=== PATIENT | female | born 1955 | race Caucasian/White ===

== ENCOUNTER → 2023-12-15 12:32 | Outpatient (REF) | payer MEDICARE, OTHER, SELFPAY | LOC: HWRAD 12:32 | PROVIDERS: ATTENDING PHYSICIAN Internal Medicine | DX: R10.32 Left lower quadrant pain (principal) | CPT/HCPCS: 74177; Q9967 ==

== ENCOUNTER 2024-06-13 22:49 | Emergency (ER) | payer MEDICARE, OTHER, SELFPAY ==
[2024-06-13 22:58] VITALS: BP 158/87
--- NOTE | 2024-06-14 02:02 | ED.GENMED ---
History of Present Illness
General
Chief Complaint: Skin Problem
Source: patient, family (Son) and medical concierge (Son)
Exam Limitations: none
Time Seen by Provider: 06/14/24 01:39
History of Present Illness
History of Present Illness:
This is a 69 year old female that comes in with c/o rash on her face. Son states that this started a month ago with some redness on her face. States that she felt like it was burning and itching. Then last week she went to the [facility] and they
did a biopsy. States that she was given 2 creams and this made her face worse. Yesterday she was given different creams and an antibiotic. Patient has take 4 doses of the antibiotic but put the cream a little on her nose and said it burned so did
not use it. States that she took Benadryl 25mg BID today. States that she has a headache and dizziness as patient has Vertigo. States that she also has chills. Denies any fever, chest pain, SOB, abd pain, nausea, vomiting, diarrhea, urinary
burning.
Past History
Past History
ED Past Medical History: GERD, Hypercholesterolemia, Psychiatric (Anxiety, ) and Other (H-pylori, Anemia, Vertigo)
ED Past Surgical History: Orthopedic (left knee tumor removed) and Tonsilectomy (Vertigo )
Social History
Tobacco: Non-smoker
Alcohol: None
Drug: None
Personal:
Living: with family
Employment: Not employed
Review of Systems
Review of Systems
All Other Systems: ROS reviewed and negative except as documented in HPI and ROS
Constitutional: Reports chills; Denies fever
EENT: Reports no symptoms
Respiratory: Reports no symptoms; Denies cough or trouble breathing
Cardiac: Reports no symptoms; Denies chest pain
ABD/GI: Reports no symptoms; Denies abdominal pain, nausea, vomiting or diarrhea
: Reports no symptoms; Denies dysuria, frequency or urgency
Musculoskeletal: Reports no symptoms
Skin: Reports no symptoms
Neurological: Reports dizzy and headache
Psychiatric: Reports no symptoms
Phy Exam
General Physical Exam
General Presentation: no apparent distress
General age: appears stated age
General Skin: warm and dry
General Habitus: elderly
General Mental: alert
General Hydration: appears well hydrated
ENT Exam
ENT Exam: TM's normal, pharynx normal and neck supple
Eye Exam
Eye Exam: EOMI
Cardiovascular Exam
Cardiovascular Exam: regular rate/rhythm, no edema, no murmur and normal peripheral pulses
Pulmonary Exam
Pulmonary Exam: lungs clear, no respiratory distress, no rales, chest non tender, no crackles, no rhonchi, no wheezing and no cough
Gastrointestinal Exam
Gastrointestinal Exam: normal bowel sounds, non tender, soft, no organomegaly, no pulsatile mass and non distended
Musculoskeletal Exam
Musculoskeletal Exam: full ROM and no edema
Skin Exam
Skin Exam: warm/dry, no petechia and redness (Red rash noted over face and a few spots on the upper chest. Rash similar to Rosacea)
Psychiatric Exam
Psychiatric Exam: normal mood/affect
Course
Orders/Labs/Results
Orders:
Orders
06/14/24 02:01
Acetaminophen [Tylenol] 1,000 mg PO NOW STA
Diphenhydramine [Benadryl] 50 mg IV NOW STA
Ketorolac [Toradol] 30 mg IV NOW STA
06/14/24 02:08
Famotidine [Pepcid] 20 mg IV NOW STA
06/14/24 03:18
Meclizine [Antivert] 50 mg PO NOW STA
Vital Signs
Initial and Last Documented VS:
Initial Vital Signs
Temp Pulse Resp BP Pulse Ox
97.8 F 69 18 158/87 97
06/13/24 22:58 06/13/24 22:58 06/13/24 22:58 06/13/24 22:58 06/13/24 22:58
Last Documented Vital Signs
Temp Pulse Resp BP Pulse Ox
97.8 F 86 17 127/66 97
06/13/24 22:58 06/14/24 02:15 06/14/24 02:15 06/14/24 02:15 06/14/24 02:15
MDM/Problems Addressed
Differential Diagnosis Includes:
facial rash, Rosacia, Contact dermatitis
MDM/Problems Addressed:
This is a 69 year old female that comes in with c/o rash over her face. Son states that this started a month ago with slight redness. States that it has continued to get worse and she has seen the [facility] twice. Patient was given Antibiotic
yesterday and changed her facial cream. Patient has a return appointment next week.
Will medicate for pain, Pepcid to decrease the histamine release and Benadryl to help with the itching.
Back into see patient. Patient states that she feels a little better but her vertigo is bothering her. Son states that she ran out of her Antivert. Will give patient a dose here and a prescription. Patient to continue with the Benadryl and Pepcid.
Encouraged her to try and use the Cream that was ordered and follow back up with the [facility]. Return with any other concerns.
Chronic conditions affecting care:
NA
Acute Exacerbation and/or Progression of Chronic Illness:
NA
*Pulse Oximetry
Patient hypoxic: no
*EKG
Interpreted by ED Provider?: NA
Rate: EKG- N/A
*Psychiatric Assistant Interpretation
Rate: Psychiatric Assistant- N/A
*Critical Care Note
Total Time (30-74mins, 75-104mins- exclusive of procedures): Not Applicable
ED Attending Note
-
Portions of this chart may have been created with voice recognition software.� Occasional wrong word or��sound alike� substitutions may have occurred due to the inherent limitations of voice recognition software.
Discharge Plan
Departure
Patient Disposition: Home (Routine Discharge)
Date of Disposition: 06/14/24
Time of Disposition: 03:19
Patient with high blood pressure during this ER visit?: Yes
Condition: Good
Covid-19: Not Applicable
Discharge Problem:
Facial rash
Instructions: Skin Rash (DC), BLOOD PRESSURE
Prescriptions:
New
meclizine [Antivert] 50 mg tablet
50 mg PO BID PRN (Reason: dizziness) Qty: 10 0RF
No Action
Multivitamin
1 tab PO DAILY
pravastatin 10 MG tablet
10 mg PO DAILY
escitalopram oxalate [Lexapro] 5 MG tablet
5 mg PO DAILY
Protonix
40 mg PO DAILY
Vitamin D2
50,000 units PO .2XWEEK
ondansetron 4 MG tablet,disintegrating
4 mg PO TIDPRN PRN (Reason: nausea/vomiting) Qty: 10 0RF
Activity Restrictions/Additional Instructions:
As discussed, please continue with the antibiotic you were given. Please try the cream as it may sting a little when it is first put on but then it may stop. Please use Pepcid 20mg which is over the counter and this will help decrease the
histamine release. Follow up with the [facility] for further evaluation. You have also been given a prescription for Antivert to help with your Vertigo. Please increase your water intake to 8-8oz glasses daily. IF YOU HAVE ANY OTHER CONCERNS
PLEASE RETURN TO THE EMERGENCY ROOM.
Interventions
Interventions:
*Risk Screen - Suicide Last Done: 06/13/24 22:58
*General Assessment Last Done: 06/14/24 02:15
*Neglect/Abuse Screening Last Done: 06/14/24 02:15
ED- Fall Risk Assessment Last Done: 06/14/24 02:15
*ED COVID-19 Vaccine History Last Done: 06/14/24 02:15
ED-Skin Assessment Last Done: 06/14/24 02:15
Discharge Date and Time
Print Language: SPANISH
[2024-06-14 02:15] VITALS: BP 127/66
[2024-06-14] MEDS: TYLENOL 1000 MG PO (02:17)
[2024-06-14] MEDS: BENADRYL 50 MG IV (02:22)
[2024-06-14] MEDS: TORADOL 30 MG IV (02:23)
[2024-06-14] MEDS: PEPCID 20 MG IV (02:23)
[2024-06-14 03:05] VITALS: BP 161/76
[2024-06-14] MEDS: ANTIVERT 25 MG PO (03:38)
[2024-06-14] MEDS: ZOFRAN 4 MG IV (03:42)
== END 2024-06-14 03:45 | disposition home or self-care (01) ==
LOC: EMR 22:49
PROVIDERS: EMERGENCY PHYSICIAN Emergency Medicine; FAMILY PHYSICIAN Internal Medicine
DX: R21 Rash and other nonspecific skin eruption (principal); R42 Dizziness and giddiness; R03.0 Elevated blood-pressure reading, without diagnosis of hypertension
CPT/HCPCS: 99284; 96374; 96375 ×3

== ENCOUNTER 2025-02-20 07:47 | Emergency (ER) | payer MEDICARE, OTHER, SELFPAY ==
[2025-02-20 07:50] VITALS: BP 153/77
[2025-02-20 08:40] LABS: Hematocrit 41.2 % (37.0-47.0); Hemoglobin 13.4 g/dL (12.0-16.0); Mean Corp Hgb Conc. 32.5 g/dL (33.0-37.0); Mean Corpuscular Volume 78.8 fL (81.0-99.0); Nucleated Red Blood Cells % 0 %; Platelet Count 206 10^3/uL (130-400); Red Cell Dist. Width 14.7 % (11.5-14.5)
[2025-02-20 08:49] LABS: ALT (SGPT) 18 U/L (0-35); AST (SGOT) 19 U/L (14-36); Albumin 4.7 g/dl (3.5-5.0); Alkaline Phosphatase 45 U/L (38-126); Blood Urea Nitrogen 16 mg/dl (7-17); Calcium 9.8 mg/dl (8.4-10.2); Carbon Dioxide 27 mmol/L (22-30); Chloride 108 mmol/L (98-107); Glucose 144 mg/dl (70-99); Potassium 4.1 mmol/L (3.5-5.1); Sodium 139 mmol/L (135-145); Total Protein 7.4 g/dl (6.3-8.2); eGFR > 60.00
[2025-02-20 08:51] LABS: INR 0.96; PT 13.3 Sec (11.4-14.6)
[2025-02-20 08:52] LABS: APTT 31.1 Sec (23.4-35.0)
[2025-02-20] MEDS: DECADRON 4 MG IV (09:34)
[2025-02-20] MEDS: KEPPRA 500 MG IV (09:35)
[2025-02-20 09:37] VITALS: BP 167/70
--- NOTE | 2025-02-20 09:55 | ED.CVA ---
History of Present Illness
General
Chief Complaint: CVA/TIA Symptoms
Source: patient, family and other (Friend)
Exam Limitations: none
Time Seen by Provider: 02/20/25 08:04
Nursing documentation reviewed up to this point in time: agreed with
Onset of Stroke Symptoms
Onset of symptoms known: Yes
Date of onset of symptoms: 02/15/25
History of Present Illness
History of Present Illness:
70-year-old female presents emergency department due to confusion and difficulty walking for the past 4 to 5 days. Son states he noticed she was having trouble with her balance. She has had intermittent confusion in the past. She denies any
fevers and no travel history.
Past History
Past History
ED Past Medical History: GERD, Hypercholesterolemia, Psychiatric (Anxiety, ) and Other (H-pylori, Anemia, Vertigo)
ED Past Surgical History: Orthopedic (left knee tumor removed) and Tonsilectomy (Vertigo )
Social History
Tobacco: Non-smoker
Alcohol: None
Drug: None
Personal:
Living: with family
Employment: Not employed
Review of Systems
Review of Systems
Allergies reviewed?: Yes
All Other Systems: Not applicable
Constitutional: Reports no symptoms
EENT: Reports no symptoms
Respiratory: Reports no symptoms
Cardiac: Reports no symptoms
ABD/GI: Reports no symptoms
: Reports no symptoms
Musculoskeletal: Reports no symptoms
Skin: Reports no symptoms
Neurological: Reports dizzy and other (Confusion)
Endocrine: Reports no symptoms
Hematologic/Lymphatic: Reports no symptoms
Psychiatric: Reports no symptoms
Phy Exam
Physical Exam
Physical Exam:
Physical Exam
General: no apparent distress, not acutely ill
Neck: supple. no meningeal signs. normal posterior pharynx
Heart: s1/s2 regular rate and rhythm, no murmur. equal radial
pulses.
HEENT: Pupils equal round reactive to light, EOMI
Lungs: no acute respiratory distress. clear bilaterally
Abdomen: normal bowel sounds. not tender. no CVAT
Neuro: alert and oriented, confusion as to year. no focal neurological deficits cranial nerves II through XII intact. Gait not tested
Skin: no rash
Psychiatric: well kept. interactive and cooperative
Extremities: no edema. no calf tenderness. negative homans. good distal pulses
Course
Orders/Labs/Results
Orders:
Orders
02/20/25 08:14
Electrocardiogram (*1) Stat
Reason for Study: Other
Other Reason for Exam: neuro symptoms
CT Head W/o Iv Contrast Urgent
Comment:
Reason For Exam: slurred speech
Cardiac Monitoring- Treatment ONCE
EKG- Treatment ONCE
IV Insert/Care/Rem.- Treatment PRN
Pulse Ox/cont/shift [RESP] Stat
Quantity: 1
02/20/25 08:21
Comprehensive Metabolic Panel Urgent
PTT Urgent
Prothrombin Time Urgent
02/20/25 08:22
Complete Blood Count/With Diff Urgent
02/20/25 09:14
Dexamethasone Sod Phosphate [Decadron] 4 mg IV NOW STA
Levetiracetam Injectable [Keppra] 500 mg IV NOW STA
Abnormal Lab Results
02/20/25 02/20/25
08:21 08:22
MCV 78.8 L fL
(81.0-99.0)
MCH 25.6 L pg
(27.0-31.0)
MCHC 32.5 L g/dL
(33.0-37.0)
RDW 14.7 H %
(11.5-14.5)
MPV 11.6 H fL
(7.4-10.4)
Chloride 108 H mmol/L
(98-107)
Glucose 144 H mg/dl
(70-99)
02/20/25 08:22
02/20/25 08:21
Vital Signs
Initial and Last Documented VS:
Initial Vital Signs
Temp Pulse Resp BP Pulse Ox
98.6 F 74 18 153/77 96
02/20/25 07:50 02/20/25 07:50 02/20/25 07:50 02/20/25 07:50 02/20/25 07:50
Last Documented Vital Signs
Temp Pulse Resp BP Pulse Ox
98.6 F 68 22 153/77 95
02/20/25 07:50 02/20/25 08:45 02/20/25 08:45 02/20/25 07:50 02/20/25 10:01
MDM/Problems Addressed
Differential Diagnosis Includes:
CVA, intracranial hemorrhage, intracranial mass
MDM/Problems Addressed:
68-year-old female with intracranial mass without hemorrhage involving corpus callosum. Discussed with neurosurgery, Dr. Jimenez at [place], who accept patient for further evaluation and treatment.
*Radiology
Radiology exam reviewed: radiology read reviewed (CT head shows mass involving corpus callosum)
*Pulse Oximetry
SaO2: 95
Oxygen Mode of Delivery: Room air
Patient hypoxic: no
*Corporate Receptionist Interpretation
Rate: normal
Interpretation: normal
Heart Rate: 68
Rhythm: sinus
*Critical Care Note
Total Time (30-74mins, 75-104mins- exclusive of procedures): 35
comment:
Critical care statement: A total of 35 minutes of critical care time was provided for this patient. This includes management of unstable vital signs, evaluation of the patient at bedside, reviewing the patient's pertinent medical records, discussion
with consultants, review of old EKGs and review of pertinent medical records. This time with separate from time utilized to perform the aforementioned documented procedures
Patient Management
Social determinants of health affecting care: Living situation and Strong social support
Discussion with other providers: [employer] (Neurosurgery, Dr. Jimenez)
Escalation/DeEscalation of care consider admission/obs:
transfer indicated
ED Attending Note
-
Portions of this chart may have been created with voice recognition software.� Occasional wrong word or��sound alike� substitutions may have occurred due to the inherent limitations of voice recognition software.
Discharge Plan
Departure
Patient Disposition: Acute Care Hospital
Date of Disposition: 02/20/25
Time of Disposition: 09:14
Patient with high blood pressure during this ER visit?: Yes
Condition: Good
Discharge Problem:
Intracranial mass
Prescriptions:
No Action
Multivitamin
1 tab PO DAILY
simvastatin 10 mg tablet
10 mg PO DAILY
meclizine 12.5 mg tablet
12.5 mg PO PRN PRN (Reason: VERTIGO)
escitalopram oxalate 20 mg tablet
20 mg PO DAILY
omeprazole 20 mg Capsule,Delayed Release(Dr/Ec)
10 mg PO DAILY
loratadine 10 mg tablet
10 mg PO PRN PRN (Reason: ALLERGIES)
Arnold 3 Capsule
500 mg PO DAILY
Referrals:
Beto Guaman MD [Family Provider, Internal Medicine]
Hospital Transfer
Other hospital: [facility]
I certify that the patient requires transfer: Yes
Discussed case with accepting physician: Barbara
Reason for transfer: higher level of care and specialties available
Interventions
Interventions:
*Risk Screen - Suicide Last Done: 02/20/25 07:55
*General Assessment Last Done: 02/20/25 08:20
*Neglect/Abuse Screening Last Done: 02/20/25 07:55
*ED- Fall Risk Assessment Last Done: 02/20/25 08:20
*ED COVID-19 Vaccine History Last Done: 02/20/25 08:20
ED- Pulmonary Assessment Last Done: 02/20/25 08:19
ED- Neurological Assessment Last Done: 02/20/25 08:19
ED- Cardiac Assessment Last Done: 02/20/25 08:19
Discharge Date and Time
Print Language: ROMANSH
[2025-02-20 11:12] VITALS: BP 152/61
[2025-02-20 12:00] VITALS: BP 144/68
[2025-02-20 13:17] VITALS: BP 132/67
== END 2025-02-20 14:00 | disposition short-term general hospital (02) ==
LOC: EMR 07:47
PROVIDERS: EMERGENCY PHYSICIAN Emergency Medicine; FAMILY PHYSICIAN Internal Medicine
DX: R42 Dizziness and giddiness (principal); R41.0 Disorientation, unspecified; R26.2 Difficulty in walking, not elsewhere classified; R47.81 Slurred speech; R22.0 Localized swelling, mass and lump, head; G93.9 Disorder of brain, unspecified; E78.00 Pure hypercholesterolemia, unspecified; F41.9 Anxiety disorder, unspecified; K21.9 Gastro-esophageal reflux disease without esophagitis; D64.9 Anemia, unspecified; Z88.8 Allergy status to other drugs, medicaments and biological substances
CPT/HCPCS: 99291; 96374; 96375; 70450; 80053; 85025; 85610; 85730; 93005

== ENCOUNTER → 2025-04-25 08:34 | Outpatient (REF) | payer MEDICARE, OTHER, SELFPAY | LOC: RAD 08:34 | PROVIDERS: ATTENDING PHYSICIAN Nurse Practitioner Acute Care; FAMILY PHYSICIAN Internal Medicine; REFERRING PHYSICIAN Radiology Radiation Oncology | DX: C71.9 Malignant neoplasm of brain, unspecified (principal); R60.9 Edema, unspecified | CPT/HCPCS: 93970 ==

== ENCOUNTER 2025-06-17 18:39 | Emergency (ER) | payer MEDICARE, OTHER, SELFPAY ==
[2025-06-17 18:45] VITALS: BP 159/85
[2025-06-17 19:27] VITALS: BMI 28.1
[2025-06-17 19:28] VITALS: BP 136/69
[2025-06-17 20:00] VITALS: BP 125/70
--- NOTE | 2025-06-17 20:30 | ED.GENMED ---
History of Present Illness
General
Chief Complaint: Visual Problem
Time Seen by Provider: 06/17/25 20:30
History of Present Illness
History of Present Illness:
FOCUSED PAST MEDICAL HISTORY
- Glioblastoma
REVIEW OF OLD RECORDS
- CAT scan from February 2025 showed crescentic shaped mixed attenuation lesion involving the corpus callosum crossing midline concerning for glioma.
Note:
CHIEF COMPLAINT(S)
Difficulty with vision and communication, weakness on the right side.
HISTORY OF PRESENT ILLNESS
The patient is a 70-year-old female with a history of glioblastoma diagnosed three months ago. Her initial diagnosis followed a CT scan performed at this facility, with subsequent MRI and biopsy conducted at [facility]. The patient underwent radiation
therapy locally and chemotherapy at [facility]. Initially, she was prescribed 4 mg of Dexamethasone, but her dose has been tapered gradually. Recently, her dose was reduced to 0.5 mg, coinciding with a decline in her communication ability about a week
ago. This morning, particularly, she experienced worsening vision, which, according to her daughter, improved after re-escalating Dexamethasone to 2 mg around 2:30 PM today. Additionally, she has experienced right-sided weakness, which is a chronic
symptom she lives with. Her primary communication is in [place], and she can currently follow simple commands.
PAST MEDICAL AND SURIGICAL HISTORY
Glioblastoma diagnosed three months ago with subsequent radiation and chemotherapy.
CHRONIC MEDICAL CONDITIONS SIGNIFICANTLY AFFECTING CARE
Glioblastoma.
REVIEW OF SYSTEMS
- Neurological: Difficulty in communication noted over the past week; weakness on the right side chronic, detailed descriptions of worsening were not provided; vision changes reported as worse today but now slightly improved.
- Musculoskeletal: Chronic right-sided weakness.
PHYSICAL EXAM
General: Alert, no acute distress.
Skin: Warm, dry.
Head: Normocephalic, atraumatic.
Neck: Supple, trachea midline.
Eyes, Ears, Nose, Mouth, and Throat: Oral mucosa moist.
Cardiovascular: Normal peripheral perfusion, no edema.
Respiratory: Respirations are non-labored.
Gastrointestinal: Abdomen nondistended.
Back: Normal range of motion, normal alignment.
Musculoskeletal: Normal range of motion, normal strength.
Neurological: Alert and oriented to person, place, time, and situation. Strength is good in all extremities, [id number] test is normal. No focal neurological deficit observed.
Psychiatric: Cooperative, appropriate mood and affect.
PLAN
1. Conduct a CT scan immediately to assess any changes or progression of the glioblastoma.
2. Attempt to contact [facility] to discuss the patients recent symptoms and her current management plan.
3. Consider future outpatient MRI if indicated and feasible.
4. Continue monitoring the patients symptoms and response to the adjusted Dexamethasone dosage.
DIFFERENTIAL DIAGNOSIS
The Differential Diagnosis includes, in no particular order and is not limited to:
1. Glioblastoma progression
2. Increased intracranial pressure
3. Cerebral edema
4. Medication side effects
5. Stroke
6. Seizure activity
7. Infection (e.g., brain abscess or meningitis)
8. Metabolic disturbance
9. Paraneoplastic syndrome
10. Radiation necrosis
Disposition:
SUMMARY OF ENCOUNTER
The patient, a 70-year-old female with a known history of glioblastoma, presented to the emergency department with concerns of worsening vision and communication difficulties. A CT scan was performed, revealing some areas of swelling but no
significant bleeding or acute changes. The patients daughter noted improvement in symptoms with an increased dose of Dexamethasone to 2 mg. After consulting with a colleague, the decision was made to maintain the patients Dexamethasone dose at 2 mg
for better symptom control. The necessity of antibiotics was unclear, and they were advised to follow up with their primary oncologist regarding it.
MANAGEMENT OF THE PATIENTS CARE WAS DISCUSSED WITH
Discussed with a colleague about CT scan results and the patients treatment plan.
PLAN
Continue Dexamethasone at 2 mg for symptom control. Follow up with Dr. Leon, the primary oncologist, to discuss the need for antibiotics and to coordinate care. An MRI is planned for Tuesday to further evaluate the glioblastoma status.
INDEPENDENT REVIEW OF LABS AND INTERPRETATION OF TESTS
My independent interpretation of the CT scan indicates some areas of swelling associated with glioblastoma but no significant bleeding.
PATIENT EDUCATION AND COUNSELING
Informed the family that the mainstay of current treatment is maintaining the Dexamethasone dose to manage symptoms. Explained the findings of the CT scan and emphasized the importance of following up with the primary oncologist.
FOLLOW-UP INSTRUCTIONS
Contact Dr. Leon tomorrow for further management regarding antibiotics and overall care.
MEDICATION RECONCILIATION
The patient will continue on Dexamethasone 2 mg daily as prescribed. Unclear instructions on antibiotic use require follow-up.
MEDICAL DECISION MAKING
- Complexity of Data Reviewed: Chronic conditions affecting care glioblastoma. Differential Diagnosis includes glioblastoma progression, increased intracranial pressure, cerebral edema, medication side effects, among others.
- Data:
Category 1
Independent interpretation of the CT scan highlights swelling but no acute changes. External records or information from the patients primary care or oncology team have not been obtained during this visit but are recommended.
- Risk:
Prescription medication management by adjusting Dexamethasone. Decision made to continue outpatient management with close follow-up due to the patients stable condition and symptom improvement. Risk assessment considers the patients chronic
glioblastoma and potential complications associated with cerebral edema and intracranial pressure.
DIAGNOSIS
1. Glioblastoma Multiforme, ICD-10 C71.9
2. Cerebral Edema, ICD-10 G93.6
I discussed case with covering oncologist/neurosurgeon at [place]. We agree would be most appropriate to have her resume higher dose of dexamethasone. After taking the higher dose of dexamethasone earlier tonight, she is already showing signs of
improving. She is to call her usual doctors at [place] [facility], Dr. Leon. She is to increase dexamethasone 2 mg daily.
Past History
Past History
ED Past Medical History: GERD, Hypercholesterolemia, Psychiatric (Anxiety, ) and Other (H-pylori, Anemia, Vertigo)
ED Past Surgical History: Orthopedic (left knee tumor removed) and Tonsilectomy (Vertigo )
Social History
Tobacco: Non-smoker
Alcohol: None
Drug: None
Personal:
Living: with family
Employment: Not employed
Phy Exam
Physical Exam
Physical Exam:
See HPI
Course
Orders/Labs/Results
Orders:
Orders
06/17/25 18:54
CT Head W/o Iv Contrast Urgent
Comment:
Reason For Exam: R eye double vision
Vital Signs
Initial and Last Documented VS:
Initial Vital Signs
Temp Pulse Resp BP Pulse Ox
36.9 C 79 18 159/85 94
06/17/25 18:45 06/17/25 18:45 06/17/25 18:45 06/17/25 18:45 06/17/25 18:45
Last Documented Vital Signs
Temp Pulse Resp BP Pulse Ox
36.9 C 74 20 136/69 96
06/17/25 18:45 06/17/25 19:45 06/17/25 20:00 06/17/25 19:28 06/17/25 20:33
*Pulse Oximetry
SaO2: 96
Oxygen Mode of Delivery: Room air
Patient hypoxic: no
*Critical Care Note
Total Time (30-74mins, 75-104mins- exclusive of procedures): Not Applicable
ED Attending Note
-
Portions of this chart may have been created with voice recognition software.� Occasional wrong word or��sound alike� substitutions may have occurred due to the inherent limitations of voice recognition software.
Discharge Plan
Departure
Patient Disposition: Home (Routine Discharge)
Date of Disposition: 06/17/25
Time of Disposition: 22:54
Patient with high blood pressure during this ER visit?: Yes
Discharge Problem:
Glioblastoma
Prescriptions:
No Action
Multivitamin
1 tab PO DAILY
simvastatin 10 mg tablet
10 mg PO DAILY
meclizine 12.5 mg tablet
12.5 mg PO PRN PRN (Reason: VERTIGO)
escitalopram oxalate 20 mg tablet
20 mg PO DAILY
omeprazole 20 mg Capsule,Delayed Release(Dr/Ec)
10 mg PO DAILY
loratadine 10 mg tablet
10 mg PO PRN PRN (Reason: ALLERGIES)
sulfamethoxazole-trimethoprim
1 tab PO QMWF
dexamethasone
PO
Referrals:
Don Leon MD [Non-Admitting Privileges, Hematology / Oncology]
Beto Guaman MD [Family Provider, Internal Medicine]
Activity Restrictions/Additional Instructions:
Heterogeneous hyperdensity associated with known glioblastoma in the left frontal lobe, likely related to calcification, though it would be difficult to exclude superimposed acute hemorrhage. Minimal increase in size. Progressive confluent
low-attenuation involving the adjacent and surrounding left frontal lobe white matter; post radiation changes in the proper clinical setting, or progressive peritumoral edema.
Neoplastic component previously extending to the right of midline has diminished in size.
Relatively stable mass effect with compression of the body of left lateral ventricle and mild right midline shift, unchanged. Stable mild asymmetric hydrocephalus of the left lateral ventricle.
I spoke to the covering oncology neurosurgeon who recommends that you increase the dexamethasone dosing back to [address] Leon tomorrow. Return if worse or other concerns.
Interventions
Interventions:
*Risk Screen - Suicide Last Done: 06/17/25 18:45
*General Assessment Last Done: 06/17/25 18:45
*Neglect/Abuse Screening Last Done: 06/17/25 19:29
*ED- Fall Risk Assessment Last Done: 06/17/25 19:29
*ED COVID-19 Vaccine History Last Done: 06/17/25 18:45
*ED Influenza Vaccine History Last Done: 06/17/25 18:45
ED- Neurological Assessment Last Done: 06/17/25 19:31
ED-EENT Assessment Last Done: 06/17/25 19:31
ED Swallowing Screen Last Done: 06/17/25 19:49
Discharge Date and Time
Print Language: HUNGARIAN
[2025-06-17 23:06] VITALS: BP 131/73
== END 2025-06-17 23:15 | disposition home or self-care (01) ==
LOC: EMR 18:39
PROVIDERS: EMERGENCY PHYSICIAN Emergency Medicine; FAMILY PHYSICIAN Internal Medicine
DX: C71.9 Malignant neoplasm of brain, unspecified (principal); R53.1 Weakness; H53.8 Other visual disturbances; G93.6 Cerebral edema; R03.0 Elevated blood-pressure reading, without diagnosis of hypertension; E78.00 Pure hypercholesterolemia, unspecified; F41.9 Anxiety disorder, unspecified; K21.9 Gastro-esophageal reflux disease without esophagitis; D64.9 Anemia, unspecified; Z88.8 Allergy status to other drugs, medicaments and biological substances
CPT/HCPCS: 99284; 70450

== ENCOUNTER 2025-07-03 15:38 | Emergency (ER) | payer MEDICARE, OTHER, SELFPAY ==
[2025-07-03] VITALS (24 sets, daily range): BP systolic 106–148; BP diastolic 59–98; BMI 26.8
--- NOTE | 2025-07-03 17:25 | ED.GENMED ---
History of Present Illness
<Sadneep Jewell DO - Last Filed: 07/03/25 20:13>
General
Chief Complaint: Headache
Time Seen by Provider: 07/03/25 17:18
<Ana Rob PA-C - Last Filed: 07/03/25 22:29>
General
Source: patient and family
Exam Limitations: none
History of Present Illness
History of Present Illness:
70yoF with a history of glioblastoma (diagnosed in February) presenting with her daughter for evaluation of a headache. Patient is primarily Kazakh speaking and has baseline aphasia. Majority of history is provided by daughter at bedside. Patient
received her first Avastin infusion 5 days ago. She had an unwitnessed fall yesterday. Son found her on the ground awake and sitting up. Unknown head strike or loss of consciousness. Since the fall, patient has been complaining of a worsening
headache and her right sided weakness seems worse. Daughter states she was dragging her foot today while ambulating. She also seems more confused than baseline. No blood thinners. She is not on any seizure medication at baseline and daughter
denies any witnessed seizures.
Past History
<Sandeep Jewell DO - Last Filed: 07/03/25 20:13>
Past History
ED Past Medical History: GERD, Hypercholesterolemia, Psychiatric (Anxiety, ) and Other (H-pylori, Anemia, Vertigo)
ED Past Surgical History: Orthopedic (left knee tumor removed) and Tonsilectomy (Vertigo )
Social History
Tobacco: Non-smoker
Alcohol: None
Drug: None
Personal:
Living: with family
Employment: Not employed
Phy Exam
<Ana Rob PA-C - Last Filed: 07/03/25 22:29>
Physical Exam
Physical Exam:
Chronically ill appearing, no apparent distress, awake and alert
General Physical Exam
General Presentation: no apparent distress
General age: appears older than age
General Skin: warm and dry
General Habitus: elderly
General Mental: alert
ENT Exam
ENT Exam: normocephalic
Eye Exam
Eye Exam: PERRL and conjunctiva normal
Pulmonary Exam
Pulmonary Exam: no respiratory distress
Neurological Exam
Neurological Exam: alert, expressive aphasia and other (4/5 strength in RUE and RLE. Baseline expressive aphasia. Unable to state birthday.)
Nichol Coma Scale
Eye Opening: Spontaneous
Verbal Response: Confused
Motor Response: Obeys Commands
GCS Total Score: 14
Skin Exam
Skin Exam: normal color and warm/dry
Psychiatric Exam
Psychiatric Exam: normal mood/affect
Course
<Sandeep Jewell, DO - Last Filed: 07/03/25 20:13>
Orders/Labs/Results
Orders:
Orders
07/03/25 15:46
CT Head W/o Iv Contrast Urgent
Comment:
Reason For Exam: Fall, headache
07/03/25 17:26
Cardiac Monitoring- Treatment ONCE
07/03/25 17:32
Dexamethasone Sod Phosphate [Decadron] 10 mg IV NOW STA
Levetiracetam Injectable [Keppra] 1,000 mg IV NOW STA
07/03/25 17:41
Type+Screen Urgent
Complete Blood Count/No Diff Urgent
Comprehensive Metabolic Panel Urgent
PTT Urgent
Prothrombin Time Urgent
Abnormal Lab Results
07/03/25
17:41
MCH 26.2 L pg
(27.0-31.0)
MCHC 32.4 L g/dL
(33.0-37.0)
MPV 10.7 H fL
(7.4-10.4)
BUN 18 H mg/dl
(7-17)
07/03/25 17:41
07/03/25 17:41
Vital Signs
Initial and Last Documented VS:
Initial Vital Signs
Temp Pulse Resp BP Pulse Ox
97.9 F 74 18 143/77 97
07/03/25 15:39 07/03/25 15:39 07/03/25 15:39 07/03/25 15:39 07/03/25 15:39
Last Documented Vital Signs
Temp Pulse Resp BP Pulse Ox
97.9 F 62 18 106/69 91
07/03/25 15:39 07/03/25 22:00 07/03/25 22:00 07/03/25 22:00 07/03/25 22:00
[place];Ana Rob PA-C - Last Filed: 07/03/25 22:29>
Orders/Labs/Results
Orders:
Orders
07/03/25 15:46
CT Head W/o Iv Contrast Urgent
Comment:
Reason For Exam: Fall, headache
07/03/25 17:26
Cardiac Monitoring- Treatment ONCE
07/03/25 17:32
Dexamethasone Sod Phosphate [Decadron] 10 mg IV NOW STA
Levetiracetam Injectable [Keppra] 1,000 mg IV NOW STA
07/03/25 17:41
Type+Screen Urgent
Complete Blood Count/No Diff Urgent
Comprehensive Metabolic Panel Urgent
PTT Urgent
Prothrombin Time Urgent
Abnormal Lab Results
07/03/25
17:41
MCH 26.2 L pg
(27.0-31.0)
MCHC 32.4 L g/dL
(33.0-37.0)
MPV 10.7 H fL
(7.4-10.4)
BUN 18 H mg/dl
(17)
07/03/25 17:41
07/03/25 17:41
Vital Signs
Initial and Last Documented VS:
Initial Vital Signs
Temp Pulse Resp BP Pulse Ox
97.9 F 74 18 143/77 97
07/03/25 15:39 07/03/25 15:39 07/03/25 15:39 07/03/25 15:39 07/03/25 15:39
Last Documented Vital Signs
Temp Pulse Resp BP Pulse Ox
97.9 F 62 18 106/69 91
07/03/25 15:39 07/03/25 22:00 07/03/25 22:00 07/03/25 22:00 07/03/25 22:00
<Ana Rob PA-C - Last Filed: 07/03/25 22:29>
MDM/Problems Addressed
Differential Diagnosis Includes:
70yoF here with worsening headache and R sided weakness. Hx of glioblastoma and receives care at [facility]. Had an unwitnessed fall yesterday with unknown head strike. Patient is awake and alert although confused and has baseline aphasia. 4/5 strength in
RUE and RLE noted. Differential diagnosis includes but is not limited to: vasogenic edema 2/2 glioblastoma, intracranial hemorrhage, seizure
Initial ED plan: CT head obtained in triage which shows intracranial hemorrhage involving L lateral ventricle. IV access obtained. Will check CBC, CMP, coags, and discuss with [facility] transfer center. 1g IV Keppra and 10mg IV Decadron ordered.
<Sandeep Jewell DO - Last Filed: 07/03/25 20:13>
*Radiology
Radiology exam reviewed: radiology read reviewed (CT headIMPRESSION: As described, evidence for acute hematoma including left intraventricular choroid plexus component.)
*Pulse Oximetry
SaO2: 97
Oxygen Mode of Delivery: Room air
*Critical Care Note
Total Time (30-74mins, 75-104mins- exclusive of procedures): see Note
comment:
Critical care statement: A total of 35 minutes of critical care time was provided for this patient. This includes management of unstable vital signs, evaluation of the patient at bedside, reviewing the patient's pertinent medical records, discussion
with consultants, review of old EKGs and review of pertinent medical records. This time with separate from time utilized to perform the aforementioned documented procedures
<Ana Rob PA-C - Last Filed: 07/03/25 22:29>
*Pulse Oximetry
Patient hypoxic: no
<Ana Rob PA-C - Last Filed: 07/03/25 22:29>
Update Note
Update Note:
Case discussed with trauma attending at [facility] who feels that patient should be admitted to neurosurgery service. Patient ultimately accepted by Dr. Gu at [facility]. Patient stable on multiple reassessments. Case signed out at shift change
awaiting transport.
ED Attending Note
<Sandeep Jewell DO - Last Filed: 07/03/25 20:13>
ED Attending Note
Patient seen and examined by attending physician: Yes
I performed the substantive portion of visit, reviewed & personally made and approve the management plan that is documented in note by myself or SHOLA.: Yes
I performed a history and physical exam of patient and discussed management with resident, I reviewed resident's note and agree with documented findings and plan of care.: Yes
ED Attending Note:
70-year-old female brought to the ER by her daughter for evaluation of right-sided weakness after an unwitnessed fall yesterday. Patient is pleasantly confused, which has been her recent baseline per the daughter present bedside. Patient speaks
primarily Kazakh, family serve as rate examiner. Patient denies any complaints at time of exam. She does follow with the oncology service at [facility] due to a history of glioblastoma-her last chemo was last Tuesday. She is not on any blood thinners.
Vital signs reviewed, patient is awake, alert, appears no acute distress, head is normocephalic atraumatic, PERRL, EOMI, tongue is midline, no facial asymmetry, moving all extremities symmetrically without focal deficit, 2+ DP pulses present
symmetric. I reviewed CT findings with patient and family present at bedside along with need for transfer to trauma center for further evaluation. Patient was transferred to [facility] for continuity-physician sales assistant institutional sales was able to review full patient
presentation through the transfer center. Awaiting ambulance arrival for dispo. Patient was given IV Keppra along with Decadron.
-
Portions of this chart may have been created with voice recognition software.� Occasional wrong word or��sound alike� substitutions may have occurred due to the inherent limitations of voice recognition software.
Discharge Plan
Departure
Patient Disposition: Acute Care Hospital
Date of Disposition: 07/03/25
Time of Disposition: 18:04
Discharge Problem:
Intracranial hemorrhage
Prescriptions:
No Action
simvastatin 10 mg tablet
10 mg PO DAILY
escitalopram oxalate 20 mg tablet
20 mg PO DAILY
sulfamethoxazole-trimethoprim [Bactrim DS] 800-160 mg Tablet
1 tab PO MOWEFR
dexamethasone 2 mg Tablet
2 mg PO DAILY
Referrals:
Beto Guaman MD [Family Provider, Internal Medicine]
Hospital Transfer
Other hospital: [facility]
I certify that the patient requires transfer: Yes
Discussed case with accepting physician: Dr. Gu
Reason for transfer: higher level of care, medical necessity, availability of service and specialties available
Interventions
Interventions:
*Risk Screen - Suicide Last Done: 07/03/25 17:26
*General Assessment Last Done: 07/03/25 15:39
*Neglect/Abuse Screening Last Done: 07/03/25 17:26
*ED- Fall Risk Assessment Last Done: 07/03/25 17:26
*ED COVID-19 Vaccine History Last Done: 07/03/25 17:26
*ED Influenza Vaccine History Last Done: 07/03/25 17:26
ED- Neurological Assessment Last Done: 07/03/25 18:46
Discharge Date and Time
Print Language: ICELANDIC
[2025-07-03] MEDS: DECADRON 10 MG IV (17:44)
[2025-07-03] MEDS: KEPPRA 1000 MG IV (17:47)
[2025-07-03 17:58] LABS: INR 0.87; PT 12.3 Sec (11.4-14.6)
[2025-07-03 17:59] LABS: APTT 27.3 Sec (23.4-35.0)
[2025-07-03 18:10] LABS: ALT (SGPT) 20 U/L (0-35); AST (SGOT) 17 U/L (14-36); Albumin 4.2 g/dl (3.5-5.0); Alkaline Phosphatase 39 U/L (38-126); Blood Urea Nitrogen 18 mg/dl (7-17); Calcium 9.2 mg/dl (8.4-10.2); Carbon Dioxide 28 mmol/L (22-30); Estimated Creatinine Clearance 76 ml/min; Glucose 96 mg/dl (70-99); Total Protein 6.9 g/dl (6.3-8.2); eGFR > 60.00
[2025-07-03 18:16] LABS: Hematocrit 41.7 % (37.0-47.0); Hemoglobin 13.5 g/dL (12.0-16.0); Mean Corp Hgb Conc. 32.4 g/dL (33.0-37.0); Mean Corpuscular Volume 81.0 fL (81.0-99.0); Platelet Count 207 10^3/uL (130-400); Red Cell Dist. Width 14.1 % (11.5-14.5)
[2025-07-03 18:23] LABS: Chloride 105 mmol/L (98-107); Potassium 4.3 mmol/L (3.5-5.1); Sodium 138 mmol/L (135-145)
== END 2025-07-03 22:49 | disposition short-term general hospital (02) ==
LOC: EMR 15:38
PROVIDERS: EMERGENCY PHYSICIAN Emergency Medicine; FAMILY PHYSICIAN Internal Medicine
DX: I62.9 Nontraumatic intracranial hemorrhage, unspecified (principal); C71.9 Malignant neoplasm of brain, unspecified; R47.01 Aphasia; R53.1 Weakness; E78.00 Pure hypercholesterolemia, unspecified; K21.9 Gastro-esophageal reflux disease without esophagitis; F41.9 Anxiety disorder, unspecified; W19.XXXA Unspecified fall, initial encounter
CPT/HCPCS: 99291; 96374; 96375; 70450; 80053; 85027; 85610; 85730; 86850; 86900; 86901